=== PATIENT | female | born 1970 ===

== ENCOUNTER 2017-12-02 09:57 | Emergency (ER) | payer MEDICAID ==
[2017-12-02 10:11] VITALS: BP 120/86
--- NOTE | 2017-12-02 10:50 | UC ---
UC General HPI - HPI Summary HPI Summary: Patient presents with two complaints today. She states she was shoveling snow and the shovel jammed into a screw and it jammed her wrist, and she now complains of pain and swelling of the lateral wrist and is having pain with movement. She also has a history of genital herpes and has recent outbreak of external bumps, that she reports are on bothe sides of her labia, and are not painful, and she states there are no vesicles. She presents for evaluation. Denies any vaginal discharge, dysuria, or hematuria. she states she is not sure if her ever had an outbreak, she has never been treated with medication for herpes. - History of Current Complaint Hx Obtained From: Patient Hx Last Menstrual Period: 10/03/17 Onset/Duration: Sudden Onset, Lasting Days Onset Severity: Moderate Current Severity: Moderate Pain Intensity: 7 Similar Episode/Dx as: herpes <Kenisha Buckley - Last Filed: 12/02/17 11:30> <Viviane Stafford - Last Filed: 12/02/17 11:37> - History of Current Complaint Chief Complaint: UCUpperExtremity Stated Complaint: RIGHT WRIST PAIN, PERSONAL Time Seen by Provider: 12/02/17 10:40 - Allergy/Home Medications Allergies/Adverse Reactions: Allergies Allergy/AdvReac Type Severity Reaction Status Date / Time No Known Allergies Allergy Verified 12/02/17 10:06 Home Medications: Home Medications Acamprosate Calcium [Acamprosate Calcium Dr] 333 mg PO TID 12/02/17 [History Confirmed 12/02/17] Acetaminophen [Tylenol] 650 mg PO Q6HR PRN 12/02/17 [History Confirmed 12/02/17] Aripiprazole 10 mg PO DAILY 12/02/17 [History Confirmed 12/02/17] Aspirin [Sam Advanced Aspirin Re] 325 mg PO DAILY PRN 12/02/17 [History Confirmed 12/02/17] Bismuth Subsalicylate 262 mg PO Q1HR PRN 12/02/17 [History Confirmed 12/02/17] Calcium Carbonate (Antacid) [Tums] 500 mg PO DAILY PRN 12/02/17 [History Confirmed 12/02/17] Diphenhydramine HCl [Benadryl Allergy] 50 mg PO Q6HR PRN 12/02/17 [History Confirmed 12/02/17] Docusate Sodium [Colace] 100 mg PO BID PRN 12/02/17 [History Confirmed 12/02/17] FLUoxetine CAP* [PROzac CAP*] 10 mg PO DAILY 12/02/17 [History Confirmed ] Gabapentin 300 mg PO BID 12/02/17 [History Confirmed 12/02/17] Guaifenesin [Guaifenesin ER] 600 mg PO Q12HR PRN 12/02/17 [History Confirmed ] Hydroxyzine HCl 10 mg PO TID PRN 12/02/17 [History Confirmed 12/02/17] Ibuprofen [Ibuprofen 200 MG] 400 mg PO Q6HR PRN 12/02/17 [History Confirmed ] Magnesium Hydroxide LIQ* [Milk of Magnrobyn LIQ*] 12/02/17 [History] Melatonin 1 cap PO BEDTIME PRN 12/02/17 [History Confirmed 12/02/17] Nicotine Lozenge* 4 mg PO DAILY PRN 12/02/17 [History Confirmed 12/02/17] Nicotine PATCH 7 MG/24 HR* 1 patch TRANSDERM DAILY 12/02/17 [History Confirmed 12/02/17] Nitrofurantoin Macrocrystal [Nitrofurantoin Macrocryst] 100 mg PO BID 12/02/17 [ History Confirmed 12/02/17] Polyethylene Glycol 1000 12/02/17 [History] Prazosin CAP* [Minipress CAP*] 1 mg PO BEDTIME 12/02/17 [History Confirmed 12/02] Vitamins W/ Lipotropics [Multi-Vitamin Hp/Minerals] 12/02/17 [History] PMH/Surg Hx/FS Hx/Imm Hx Previously Healthy: Yes - Surgical History Surgical History: Yes Surgery Procedure, Year, and Place: [facility] - Social History Lives: Alone Alcohol Use: None Substance Use Type: None Smoking Status (MU): Former Smoker <Kenihsa Buckley - Last Filed: 12/02/17 11:30> Review of Systems Constitutional: Negative Skin: Negative Eyes: Negative ENT: Negative Respiratory: Negative Cardiovascular: Negative Gastrointestinal: Negative Genitourinary: Ulceration/Lesion Motor: Negative Neurovascular: Negative Musculoskeletal: Arthralgia - right wrist, Decreased ROM, Myalgia Neurological: Negative Psychological: Negative Is Patient Immunocompromised?: No All Other Systems Reviewed And Are Negative: Yes <Buckley,Kenisha Syed - Last Filed: 12/02/17 11:30> Physical Exam Triage Information Reviewed: Yes Appearance: Well-Appearing Vital Signs: Initial Vital Signs Temp 98 F 12/02/17 10:07 Pulse 96 12/02/17 10:07 Resp 16 12/02/17 10:07 BP 120/86 12/02/17 10:07 Pulse Ox 100 12/02/17 10:07 Vital Signs Reviewed: Yes Eye Exam: Normal ENT Exam: Normal Neck exam: Normal Neck: Positive: 1 Respiratory Exam: Normal Cardiovascular Exam: Normal Abdominal Exam: Normal Abdomen Description: Positive: Other: - exam; no evidence of herpetic lesion noted on exa. 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 Musculoskeletal Exam: Normal Musculoskeletal: Positive: ROM Limited @, Edema @ - lateral right wrist. Neurological Exam: Normal Psychological Exam: Normal Skin Exam: Normal <Kenisha Buckley - Last Filed: 12/02/17 11:30> Vital Signs: Initial Vital Signs Temp 98 F 12/02/17 10:07 Pulse 96 12/02/17 10:07 Resp 16 12/02/17 10:07 BP 120/86 12/02/17 10:07 Pulse Ox 100 12/02/17 10:07 <Viviane Stafford - Last Filed: 12/02/17 11:37> Course/Dx - Course Course Of Treatment: Patient presents s/p traumatic right wrist injury, xrays were obtained and were negative for fracture, I gave the patient a copy of the report and reviewed it with her. She also had some concerns about painless skin changes of the labia, which are not herpes, therefore no treatment was indicated. She reported a recent [employer] examination and declined a pelic exam today. She offered no other concerns or complaints. The right wrist was placed in an david wrap, and angelito up splint. She was told that if the wrist pain persisted and as stated in the radiologist report whe would need repeat imaging. she verbalized understanding of and was in agreement with the discharge plan. - Differential Dx - Multi-Symptom Differential Diagnoses: Other - right wrist contusion right wrist alton Provider Diagnoses: right wrist srain. right wrist contusion <Kenisha Buckley - Last Filed: 12/02/17 11:30> Discharge <Kenisha Buckley - Last Filed: 12/02/17 11:30> <Viviane Stafford - Last Filed: 12/02/17 11:37> - Discharge Plan Condition: Stable Disposition: HOME Patient Education Materials: Contusion in Adults (ED), Wrist Sprain (ED) Referrals: No Primary Care Phys,NOPCP [Primary Care Provider] - Attestation Statement User Type: Provider - I was available for consult. This patient was seen by the YIMI. The patient was not presented to, seen by, or examined by me. Sri <Viviane Stafford - Last Filed: 12/02/17 11:37>
--- NOTE | 2017-12-02 11:12 | RAD ---
INDICATION: "Jammed" wrist while shoveling snow one day earlier COMPARISON: None. TECHNIQUE: 3 views right wrist. REPORT: The visualized bones are properly aligned and well corticated. The joint spaces are normal.There is no fracture, dislocation or other focal osseous abnormality. IMPRESSION: Normal radiograph of the right wrist. If the patient's symptoms persist, follow-up imaging is recommended.
== END 2017-12-02 11:32 | disposition home or self-care (01) ==
LOC: UCEAST 09:57
DX: S66.911A Strain of unspecified muscle, fascia and tendon at wrist and hand level, right hand, initial encounter (principal); S60.211A Contusion of right wrist, initial encounter; W22.8XXA Striking against or struck by other objects, initial encounter; Y93.H1 Activity, digging, shoveling and raking; Y92.9 Unspecified place or not applicable
CPT/HCPCS: 99203; G0463

== ENCOUNTER 2017-12-23 09:34 | Emergency (ER) | payer OTHER ==
--- NOTE | 2017-12-23 11:06 | RAD ---
Indication: Left ankle injury. 3 views of left ankle demonstrate soft tissue swelling laterally. Focal osteopenia in the distal shaft of the fibula is noted. No definite displaced fracture is noted. Follow-up imaging is suggested. IMPRESSION: Soft tissue swelling laterally. Focal area of osteopenia is noted in the distal shaft of the fibula. I cannot totally exclude a nondisplaced fracture and follow-up imaging is suggested.
[2017-12-23] MEDS ORDERED: Ibuprofen TAB* 600 MG PO ONE (11:56)
--- NOTE | 2017-12-23 12:00 | UC ---
She Duran Gabriel, scribed for Viviane Stafford MD on 12/23/17 at 1152 . Lower Extremity/Ankle HPI - HPI Summary HPI Summary: This patient is a 47 year old F presenting to [facility] s/p fall that occurred this morning. Pt states she was sleeping with her leg twisted and when she got up and put weight on it the leg gave out. The patient rates the pain 8/10 in severity. Symptoms aggravated ankle flexion. Patient reports numbness and tingling in the LLE as well as left ankle and left knee pain. She is currently living at [facility] for alcohol rehab. no analgesia. + ice applied. no other injuries Patients medication reviewed during this visit. - History of Current Complaint Chief Complaint: UCLowerExtremity Stated Complaint: ANKLE INJURY Time Seen by Provider: 12/23/17 11:42 Hx Obtained From: Patient Hx Last Menstrual Period: one month ago Onset/Duration: Sudden Onset, Lasting Hours, Still Present Severity Initially: Severe Severity Currently: Severe Pain Intensity: 8 Pain Scale Used: 0-10 Numeric Aggravating Factor(s): Other - flexion of the ankle Able to Bear Weight: No - Allergies/Home Medications Allergies/Adverse Reactions: Allergies Allergy/AdvReac Type Severity Reaction Status Date / Time No Known Allergies Allergy Verified 12/02/17 10:06 PMH/Surg Hx/FS Hx/Imm Hx Previously Healthy: Yes Endocrine History: Hypothyroidism Respiratory History: COPD Psychological History: Anxiety Other History Of: Negative For: Hepatitis B - Surgical History Surgical History: Yes Surgery Procedure, Year, and Place: [facility] - Family History Known Family History: Positive: Unknown - pt is adopted - Social History Occupation: Unemployed Lives: Shelter - [facility] Alcohol Use: 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 Substance Use Type: None Smoking Status (MU): Former Smoker Review of Systems Constitutional: Negative Musculoskeletal: Other: - LLE pain @ knee and ankle Neurological: Paresthesia - in LLE All Other Systems Reviewed And Are Negative: Yes Physical Exam Triage Information Reviewed: Yes Appearance: Well-Appearing, No Pain Distress, Well-Nourished Vital Signs: Initial Vital Signs Temp 97.8 F 12/23/17 10:15 Pulse 79 12/23/17 10:15 Resp 16 12/23/17 10:15 BP 104/70 12/23/17 10:15 Pulse Ox 99 12/23/17 10:15 Vital Signs Reviewed: Yes Eye Exam: Normal Eyes: Positive: Conjunctiva Clear ENT Exam: Normal ENT: Positive: Normal ENT inspection, Hearing grossly normal, TMs normal Dental Exam: Normal Neck exam: Normal Neck: Positive: Supple, Nontender, No Lymphadenopathy Respiratory Exam: Normal Respiratory: Positive: Chest non-tender, Lungs clear Cardiovascular Exam: Normal Cardiovascular: Positive: RRR, No Murmur, Other: - 2+ DP, PT Musculoskeletal: Positive: Other: - no pain c/t//s + FLE + flex/ext knee + flex/ ext ankle with discomfort lateral aspect + edema lateral malleolus + TTP inferior, anterior malleolus no pain along tarsal, metatarsal Neurological Exam: Normal Psychological Exam: Normal Skin Exam: Normal Diagnostics - Radiology ankle xray Radiology Interpretation Completed By: Radiologist - Soft tissue swelling laterally. Focal area of osteopenia is noted in the distal shaft of the fibula. I cannot totally exclude a nondisplaced fracture and follow-up imaging is suggested. Dr. Stafford has reviewed this report. Lower Extremity Course/Dx - Course Course Of Treatment: Pt with pain left lateral malleolus discomfort following mechanical fall. xray no fx. david. air splint. crutches. ortho referral. motrin/apap. ice. elevate - Differential Dx/Diagnosis Provider Diagnoses: left ankle sprain Discharge - Discharge Plan Condition: Stable Disposition: HOME Patient Education Materials: Ankle Fracture (DC), Ankle Sprain (ED) Forms: *Gen. Provider Communication Referrals: No Primary Care Phys,NOPCP [Primary Care Provider] - Collin Manrique MD [Medical Doctor] - As Soon As Possible Additional Instructions: -wear david wrap and splint for comfort and support -apply ice (20 min at a time) every 2-3 hours for the next 2 days -use crutches until you can walk normally without a limp. Okay to gentle touch down your foot for balance -Elevate your leg - this will help with swelling and pain -Okay to alternate ibuprofen (advil, motrin) and tylenol every 3 hours for pain. Take with food -Contact Dr. Manrique, the orthopedic provider, to schedule a follow-up appointment. The documentation as recorded by the She mcneill Gabriel accurately reflects the service I personally performed and the decisions made by , Viviane Stafford MD.
[2017-12-23 12:01] VITALS: BP 125/76
== END 2017-12-23 12:13 | disposition home or self-care (01) ==
LOC: UCEAST 09:34
DX: S93.402A Sprain of unspecified ligament of left ankle, initial encounter (principal); W18.30XA Fall on same level, unspecified, initial encounter; Y93.89 Activity, other specified; Y92.9 Unspecified place or not applicable; E03.9 Hypothyroidism, unspecified; J44.9 Chronic obstructive pulmonary disease, unspecified; F41.9 Anxiety disorder, unspecified; Z87.891 Personal history of nicotine dependence
CPT/HCPCS: 99212; A9270-GY; G0463